=== PATIENT | female | born 1990 | race Caucasian/White ===

== ENCOUNTER → 2020-09-24 | Outpatient (CLI) | payer OTHER ==
[~2020-09-24] MED LIST: FEOSOL325 MG PO
== END ==
LOC: EXRD 09:07
DX: K52.9 Noninfective gastroenteritis and colitis, unspecified (principal)
CPT/HCPCS: 76705

== ENCOUNTER → 2022-02-24 | Outpatient (CLI) | payer OTHER | LOC: KOH-I 09:45 | DX: K75.81 Nonalcoholic steatohepatitis (NASH) (principal) | CPT/HCPCS: 76700 ==